=== PATIENT | male | born 2000 | race Caucasian/White ===

== ENCOUNTER 2020-10-27 16:49 | Emergency (ER) | payer OTHER ==
[~2020-10-27 16:49] MED LIST: BACTROBAN NASAL1 G1; IBUPROFEN600 MG PO; KEFLEX CAP 500500 MG PO
== END 2020-10-27 20:35 | disposition home or self-care (01) ==
LOC: ER1 16:49
DX: R05 Cough (principal); R50.9 Fever, unspecified; R09.89 Other specified symptoms and signs involving the circulatory and respiratory systems; F17.290 Nicotine dependence, other tobacco product, uncomplicated; Z90.89 Acquired absence of other organs; Z20.822 Contact with and (suspected) exposure to COVID-19
CPT/HCPCS: 0240U; 87081; 87880; 99283